=== PATIENT | female | born 1970 | race Hispanic/Latino ===

== ENCOUNTER 2022-06-15 17:28 | Emergency (ER) | payer BC, OTHER ==
[~2022-06-15] VITALS: Ht 170.2 cm; Wt 80.7 kg
[~2022-06-15 17:28] MED LIST: CETI10TA57 PO; LEVO112T4 PO
[2022-06-15 17:57] LABS: APPEARANCE,URINE CLEAR (CLEAR); BILIRUBIN,URINE NEGATIVE (NEGATIVE); COLOR,URINE YELLOW (YELLOW); GLUCOSE, URINE (UA) NEGATIVE (NEGATIVE); KETONES,URINE NEGATIVE (NEGATIVE); LEUKOCYTE ESTERASE ,URINE TRACE (NEGATIVE); NITRATE,URINE NEGATIVE (NEGATIVE); OCCULT BLOOD,URINE TRACE-INTACT (NEGATIVE); PROTEIN,URINE NEGATIVE (NEGATIVE); UROBILINOGEN,URINE 0.2 mg/dL (0.2-1.0)
[2022-06-15 18:14] LABS: BACTERIA,URINE Rare /HPF (None Seen); RBC,URINE 0-1 /HPF (0-1); SQUAMOUS EPITHELIAL CELL,UR Few /HPF (0-2)
[2022-06-15] MEDS ORDERED: KETOROLAC 15MG/ML VIAL (15MG/ML) IV ONE (18:30)
[2022-06-15 18:51] LABS: BASOPHILS % (AUTO) 0.7 % (0.0-5.0); EOSINOPHILS % (AUTO) 2.7 % (0.0-8.0); LYMPHOCYTES % (AUTO) 25.8 % (21.0-51.0); MEAN CORPUSCULAR HEMOGLOBIN 28.2 pg (27.0-33.0); MEAN CORPUSCULAR HGB CONC 32.6 g/dL (32.0-36.0); MEAN CORPUSCULAR VOLUME 86.5 fL (79-99); MONOCYTES % (AUTO) 7.4 % (3.0-13.0); NEUTROPHILS % (AUTO) 63.3 % (40.0-77.0); PLATELET COUNT (AUTO) 290 K/uL (130-400); RED BLOOD CELL COUNT(AUTO) 3.93 MIL/uL (4.00-5.50); RED CELL DISTRIBUTION WIDTH 13.3 % (11.0-15.5); WHITE BLOOD COUNT (AUTO) 7.3 K/uL (4.8-10.8)
[2022-06-15] MEDS ORDERED: NITROFURANTOIN MONOHYD/M-CRYST 100 MG CAPSULE PO ONE (19:00)
[2022-06-15 19:02] LABS: CREATININE 0.8 mg/dL (0.5-1.5); POTASSIUM 3.3 mmol/L (3.5-5.1)
[2022-06-15 19:04] LABS: ALBUMIN 3.4 g/dL (3.5-5.0)
[2022-06-15 19:07] LABS: TOTAL PROTEIN, SERUM 7.7 g/dL (6.0-8.3)
[2022-06-15] MEDS ORDERED: KETOROLAC 30MG VIAL (30MG/ML) ONE (19:51)
[2022-06-15 20:02] LABS: ERYTHROCYTE SEDIMENTATION RATE 65 MM/HR (0-30)
[2022-06-15] MEDS ORDERED: NAPR-1180 PO (23:17)
[2022-06-15] MEDS ORDERED: PRED20TA3 PO (23:17)
[2022-06-15 23:18] VITALS: BP 108/64
[2022-06-15] MEDS ORDERED: SOLU-MEDROL 125MG VIAL IVP ONE (23:30)
== END 2022-06-15 23:24 | disposition home or self-care (01) ==
LOC: EEVIPCON 17:28 → EDH 17:28
DX: M06.4 Inflammatory polyarthropathy (principal); R82.81 Pyuria; M54.9 Dorsalgia, unspecified; R11.0 Nausea; M79.10 Myalgia, unspecified site; Z79.1 Long term (current) use of non-steroidal anti-inflammatories (NSAID); Z87.440 Personal history of urinary (tract) infections
CPT/HCPCS: 99285; 96374; 96375; 82550; 80053; 85025; 85651; 81001; 36415; J2930; J1885

== ENCOUNTER 2025-09-13 19:17 | Emergency (ER) | payer BC, OTHER ==
[~2025-09-13] VITALS: Ht 170.2 cm; Wt 82.6 kg
--- NOTE | 2025-09-13 19:30 | EKG ---
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
[2025-09-13 19:51] LABS: IMMATURE GRANULOCYTE ABSOLUTE 0.04 K/uL (0-1); NUCLEATED RED BLOOD CELLS 0.0 % (0.0-0.19); PLATELET COUNT (AUTO) 315 K/uL (130-400); RED BLOOD CELL COUNT(AUTO) 4.74 MIL/uL (4.00-5.50); RED CELL DISTRIBUTION WIDTH 13.2 % (11.0-15.5); WHITE BLOOD COUNT (AUTO) 10.0 K/uL (4.8-10.8)
--- NOTE | 2025-09-13 19:51 | ERN ---
ED Note History of Present Illness Stated Complaint: C/O LEFT SIDED CP WITH COUGH, CONGESTION Chief Complaint: Cough Time Seen by MD: 19:20 Time Seen by Midlevel: 19:20 Dictation: The patient is a 55-year-old female with a history of hypothyroidism who presents to the emergency department with complaints of left-sided chest pain onset two days ago. Patient reports pain is constant and is worse with breathing. Reports some shortness of breath. Patient also reports nonproductive cough. Denies any fevers, denies any nasal congestion or ear pain. Allergies: Coded Allergies: No Known Allergies (Unverified Allergy, Unknown, 06/08/14) Home Meds Active Scripts Naproxen (Naprosyn) 500 Mg Tablet, 500 MG PO BIDPC for 10 Days, #20 TAB 0 Refills Prov:VERN PERRY MD 06/15/22 Prednisone (Prednisone) 20 Mg Tablet, 1 TAB PO AD for 6 Days, #14 TAB 0 Refills TAKE 1 TAB BY MOUTH THREE TIMES PER DAY X3 DAYS, THEN TAKE 1 TAB BY MOUTH TWICE A DAY X2 DAYS, THEN TAKE 1 TAB BY MOUTH ONCE A DAY X1 DAY. Prov:VERN PERRY MD 06/15/22 Reported Medications Cetirizine HCl (Cetirizine HCl) 10 Mg Tablet, 10 MG PO DAILY, TAB 06/08/14 Levothyroxine Sodium (Synthroid) 112 Mcg Tablet, 112 MCG PO DAILY, TAB 06/08/14 Past Medical History Past Medical History: Hypothyroid Additional Past Medical Hx: THYROID Surgical History: Other Social History: Lives with family RN Note Reviewed/Agreed w/PFSH: Yes Review of System Dictation Constitutional: Negative for fever,chills, and weight loss Eyes: Negative for injury, pain,redness, and discharge ENT: Negative for injury,pain or swelling Cardiovascular: Negative for , palpitations, and edema positive for chest pain Respiratory: Negative for wheezing, positive for shortness of breath, cough Abdomen/GI: Negative for abdominal pain, nausea, vomiting, diarrhea, and constipation Back: Negative for injury and pain : Negative for injury, bleeding and discharge MS/Extremity: Negative for injury and deformity Skin: Negative for rash, and discoloration Neuro: Negative for headache, weakness, numbness, tingling, and seizure Psych: Negative for suicide ideation, homicidal ideation, and hallucinations Initial Vital Sign VS Vital Signs Date Time Temp Pulse Resp B/P (MAP) Pulse Ox O2 Delivery O2 Flow Rate FiO2 09/13/25 19:22 98.1 91 20 156/105 99 Room Air 09/13/25 20:05 0 21 Physical Exam Dictation Vital Signs reviewed General Appearance: Alert, oriented x 3, no acute distress, well developed, nourished. Head and Face: non-traumatic. Eyes: PERRL, pink conjunctivas, eyelid no trauma, anterior chamber with arcus senilis. Ears: Pinnas intact and no signs of trauma or erythema ear canals clear and no discharge TM no erythema Nose: No discharge, no bleeding. Oropharynx: Mouth normal, tongue pink. pharynx clear,no erythema, tonsils no exudates, no abscesses noted, mucous membrane moist Neck: Supple, non-tender, no thyromegaly, no masses, no JVD, no bruits Breast:Deferred Chest:No tenderness, no crepitus, no paradoxical movement, no retractions Lungs:Clear, well-ventilated, symmetric, no rales, no wheezing, no rhonchi, no stridor, good breath sounds bilaterally Heart: Regular rate, regular rhythm, no murmur, no gallops Vascular: no peripheral edema, Abdomen: Soft, positive bowel sounds, nondistended, no guarding, nontender, no rebound, no masses no hepatomegaly, no splenomegaly, no Johnston's sign, no hernias. Rectal: Deferred Genital: Deferred Neurological: Normal speech, motor function intact, sensory function intact Musculoskeletal: Neck nontender, full range of motion, back nontender, full range of motion, Extremities: nontender, full range of motion Skin: Color pink, dry, no turgor, no rash, no lacerations, no abrasions, no contusions. Lymphatic: Deferred Results (Laboratory/Radiology) Laboratory/Radiology Laboratory Tests Test 09/13/25 19:30 09/13/25 19:43 Influenza Type A Antigen Negative For Type A Influenza Type B Antigen Negative For Type B SARS-CoV-2, RNA, NAAT NEGATIVE SARS CoV-2 Group A Streptococcus Rapid negative (NEGATIVE) White Blood Count 10.0 K/uL (4.8-10.8) Red Blood Count 4.74 MIL/uL (4.00-5.50) Hemoglobin 13.8 g/dL (12.0-16.0) Hematocrit 41.1 % (36-48) Mean Corpuscular Volume 86.7 fL (79-99) Mean Corpuscular Hemoglobin 29.1 pg (27.0-33.0) Mean Corpuscular Hemoglobin Concent 33.6 g/dL (32.0-36.0) Red Cell Distribution Width 13.2 % (11.0-15.5) Platelet Count 315 K/uL (130-400) Mean Platelet Volume 9.3 fL (7.5-10.5) Immature Granulocyte % (Auto) 0.4 % (0-1) Neutrophils (%) (Auto) 50.3 % (40.0-77.0) Lymphocytes (%) (Auto) 33.8 % (21.0-51.0) Monocytes (%) (Auto) 8.5 % (3.0-13.0) Eosinophils (%) (Auto) 6.3 % (0.0-8.0) Basophils (%) (Auto) 0.7 % (0.0-5.0) Neutrophils # (Auto) 5.0 K/uL (1.8-7.7) Lymphocytes # (Auto) 3.4 K/uL (1.0-4.8) Monocytes # (Auto) 0.9 K/uL (0.1-1.0) Eosinophils # (Auto) 0.63 K/uL (0.00-0.70) Basophils # (Auto) 0.07 K/uL (0.00-0.20) Absolute Immature Granulocyte (auto 0.04 K/uL (0-1) Nucleated Red Blood Cells 0.0 % (0.0-0.19) Sodium Level 139 mmol/L (136-145) Potassium Level 3.7 mmol/L (3.5-5.1) Chloride Level 99 mmol/L (101-111) L Carbon Dioxide Level 29 mmol/L (21-32) Blood Urea Nitrogen 13 mg/dL (7-18) Creatinine 0.8 mg/dL (0.5-1.0) Glomerular Filtration Rate Calc 87 mL/min (>90) Random Glucose 87 mg/dL (70-105) Total Calcium 9.3 mg/dL (8.5-10.1) Total Creatine Kinase 114 U/L (21-232) # Troponin I High Sensitivity 19 ng/L (4-50) REASON: sob ORDERING PHYSICIAN: ALEX LANGLEY RETAIL PHARMACY MANAGER PROCEDURE: CXR1VW - CHEST 1VW EXAM: CR Chest, 1 View. CLINICAL HISTORY: SOB. COMPARISON: None provided. FINDINGS: LUNGS: There is no mass, infiltrate, or acute pulmonary abnormality. Prominent bronchovascular markings in the bilateral lower zones. PLEURAL SPACES: No pleural effusion or pneumothorax. MEDIASTINUM: Cardiac size and mediastinal contours are within normal limits. BONES: No acute osseous abnormality. IMPRESSION: No acute cardiopulmonary pathology is evident except for prominent bronchovascular markings in the bilateral lower zones. /Range Labs Reviewed?: Yes EKG: (+) rhythm (Sinus rhythm) EKG Comment: Date:09/13/2025 Time:1933 Ventricular rate:74 TN interval:205 QRS duration:96 QT/QTc:384/425 EKG interpretation: Sinus rhythm Reviewed by ED Attending no STEMI ED Course ED Course Orders Procedure Category Date Status Time Covid Rna Naat LAB 09/13/25 Complete 19:20 Influenza Type A & B, LAB 09/13/25 Complete Rapid 19:20 Rapid (Group A Strep) LAB 09/13/25 Complete 19:20 12 Lead Ekg Tracing- EKG 09/13/25 Complete Technical 19:20 Cbc With Differential LAB 09/13/25 Complete 19:34 Chest 1vw RAD 09/13/25 Resulted 19:34 Creatine Kinase, Total LAB 09/13/25 Complete 19:34 Troponin I High LAB 09/13/25 Complete Sensitivity 19:34 Basic Metabolic Panel LAB 09/13/25 Complete 19:34 Ketorolac 60mg/2ml PHA 09/13/25 Complete (Toradol 60mg/2ml) 20:00 Current Medications Medications (Trade) Dose Ordered Sig/Gregorio Route PRN Reason Start Time Stop Time Status Last Admin Dose Admin Ketorolac Tromethamine (toRADol 60MG/ 2ML) 60 mg ONCE ONCE IM 09/13/25 20:00 09/13/25 20:01 DC 09/13/25 20:12 Vital Signs Date Time Temp Pulse Resp B/P (MAP) Pulse Ox O2 Delivery O2 Flow Rate FiO2 09/13/25 20:05 98.1 91 20 156/105 99 Room Air* 0 21 09/13/25 19:22 98.1 91 20 156/105 99 Room Air HEART Score Response (Comments) Value History: Low suspicion (0) 0 EKG: Normal 0 Age: 45-65yrs (+1) 1 Risk Factors: No known risk factors (0) 0 Initial Troponin: Normal limit (0) 0 Total 1 Medical Decision Making MDM The patient is a 55-year-old female with a history of hypothyroidism who presents to the emergency department with complaints of left-sided chest pain onset two days ago. Patient reports pain is constant and is worse with breathing. Reports some shortness of breath. Patient also reports nonproductive cough. Denies any fevers, denies any nasal congestion or ear pain. CBC showed no leukocytosis, no anemia, chemistry showed no electrolyte imbalance, GFR of 87, negative troponin, serology was negative. Chest x-ray showed no consolidations. Patient reports he has been having constant pain for two days. Patient with tenderness to palpation. Patient also with a cough patient's symptoms likely due to a costochondritis secondary to cough. Patient otherwise in no acute distress, stable vital signs. Patient with low risk for cardiac etiology. Wells score low risk. We will discharged to follow up with PCP. Differential diagnosis: Upper respiratory infection, ACS, tachyarrhythmia, pneumonia, costochondritis Need for hospitalization: Patient does not meet criteria for hospitalization. There are no social concerns with this patient. DX & DISP Disposition: Discharge Departure Impression: Primary Impression: Viral URI with cough Additional Impression: Chest wall pain Condition: Stable Scripts Ibuprofen (Ibuprofen) 600 Mg Tablet 600 MG PO Q6H PRN for PAIN, #15 TAB Prov: ALEX LANGLEY RETAIL PHARMACY MANAGER 09/13/25 Benzonatate (Tessalon Perles) 100 Mg Cap 1-2 CAP PO Q4H for cough for 5 Days, #60 CAP 0 Refills Prov: ALEX LANGLEY RETAIL PHARMACY MANAGER 09/13/25 Additional Instructions: Your labs were unremarkable, your chest xray did not show any pneumonia. Please follow up with your PCP in 1-2 days. If anything worsens please return to ER. FOLLOW-UP WITH PRIMARY CARE PROVIDER IN 1 TO 2 DAYS. TAKE MEDICATIONS D IRECTED HERE IN THE EMERGENCY ROOM. OKAY TO CONTINUE HOME MEDICATIONS UNLESS OTHERWISE DISCUSSED DURING YOUR VISIT IN THE EMERGENCY ROOM TODAY. RETURN TO YOUR NEAREST EMERGENCY ROOM IF SYMPTOMS WORSEN OR IF THERE IS NO IMPROVEMENT. CALL 911 IF YOU NEED IMMEDIATE ASSISTANCE. TAKE TYLENOL [id number] NEEDED AND IF NO CONTRAINDICATIONS ARE PRESENT. INCREASE ORAL HYDRATION. A WOUND CULTURE OR URINE CULTURE WAS ORDERED HERE IN THE EMERGENCY ROOM DEPARTMENT PLEASE FOLLOW-UP WITH PRIMARY CARE PROVIDER AND ADVISE THEM TO GET REPEAT PORTS FROM OUR FACILITY. IF YOU HAD ANY MIGUEL WRAP/SPLINTS THAT WERE APPLIED HERE, PLEASE DO NOT REMOVE THEM UNTIL YOU SEE YOUR PRIMARY CARE OR SPECIALTY. Referrals: DIANA GARCÍA MD (PCP) Time of Disposition: 21:42 I have reviewed the case, and I agree with, Diagnosis and Plan ALEX LANGLEY [facility] Sep 13, 2025 19:51
[2025-09-13 20:00] LABS: CREATININE 0.8 mg/dL (0.5-1.0); GLOMERULAR FILTR. RATE CALC 87.0 mL/min (>90); GLUCOSE,RANDOM 87.0 mg/dL (70-105); SODIUM SERUM 139.0 mmol/L (136-145); UREA NITROGEN, BLOOD 13.0 mg/dL (7-18)
[2025-09-13 20:03] LABS: RAPID GROUP A STREP negative (NEGATIVE)
[2025-09-13 20:05] VITALS: BP 156/105; PULSE 91; RESP 20; TEMP 98.1; O2SAT 99
[2025-09-13 20:05] LABS: CREATINE KINASE, TOTAL 114.0 U/L (21-232)
[2025-09-13 20:10] LABS: SARS-CoV-2, RNA, NAAT NEGATIVE SARS CoV-2 (NEGATIVE)
[2025-09-13 20:15] LABS: INFLUENZA TYPE A Negative For Type A (NEGATIVE); INFLUENZA TYPE B Negative For Type B (NEGATIVE)
--- NOTE | 2025-09-13 20:58 | HMCIMG ---
EXAM: CR Chest, 1 View. CLINICAL HISTORY: SOB. COMPARISON: None provided. FINDINGS: LUNGS: There is no mass, infiltrate, or acute pulmonary abnormality. Prominent bronchovascular markings in the bilateral lower zones. PLEURAL SPACES: No pleural effusion or pneumothorax. MEDIASTINUM: Cardiac size and mediastinal contours are within normal limits. BONES: No acute osseous abnormality. IMPRESSION: No acute cardiopulmonary pathology is evident except for prominent bronchovascular markings in the bilateral lower zones. /[place]
== END 2025-09-13 22:01 | disposition home or self-care (01) ==
LOC: EDH 19:17
DX: J06.9 Acute upper respiratory infection, unspecified (principal); R07.89 Other chest pain; E03.9 Hypothyroidism, unspecified; Z79.899 Other long term (current) drug therapy; Z20.822 Contact with and (suspected) exposure to COVID-19
CPT/HCPCS: 99284; 71045; 87635; 82550; 84484; 80048; 85025; 87880; 87804 ×2; 36415; 96372; 93005; J1885